=== PATIENT | male | born 1985 | race African-American/Black ===

== ENCOUNTER 2017-06-21 10:15 | Inpatient (IN) | payer OTHER ==
--- NOTE | 2017-06-21 10:48 | PDOC ---
History of Present Illness - General Chief Complaint: Weakness Stated Complaint: LETHARGIC - History of Present Illness Initial Comments: 32 year old male with history of MR and schizophrenia presenting with abdominal pain, nausea, vomiting, and general lethargy for the past week that has been worsening. Per the nursing staff, the patient has been more lethargic over the past few days and has been vomiting non bloody but occasionally bilious fluid. The staff says that he is less responsive than usual and has been complaining of stomach pain over the past few days. Denies fevers, chills, chest pain, cough, or urinary complaints. Of note, he has been generally severely declined over the past year and his dose of Depakote and seroquel has increased significantly with the latest change two weeks prior. 06/21/17 10:58 Past History - Past Medical History Allergies/Adverse Reactions: Allergies Allergy/AdvReac Type Severity Reaction Status Date / Time No Known Allergies Allergy Verified 06/21/17 10:28 Home Medications: Ambulatory Orders Acetaminophen [Tylenol] 650 mg PO QID 06/21/17 Aripiprazole [Abilify -] 5 mg PO DAILY 06/21/17 Cholecalciferol (Vitamin D3) [Vitamin D3 -] 1,000 unit PO DAILY 06/21/17 Divalproex [Depakote -] 1,500 mg PO BID 06/21/17 Guaifenesin/D-Methorphan Hb/PE [Tussi-Pres Liquid] 10 ml PO QID 06/21/17 Propranolol HCl 20 mg PO BID 06/21/17 Quetiapine Fumarate [Seroquel -] 300 mg PO HS 06/21/17 Psychiatric Problems: Yes (schizophrenia) Seizures: Yes Other medical history: mild MR - Suicide/Smoking/Psychosocial Hx Smoking History: Never smoked Review of Systems - Review of Systems Constitutional: Yes: Loss of Appetite. No: Chills, Fever HEENTM: No: Blurred Vision Respiratory: No: Cough, Shortness of Breath, Productive cough Cardiac (ROS): No: Chest Pain, Edema ABD/GI: Yes: Nausea. No: Constipated, Diarrhea : No: Burning, Dysuria Neurological: No: Headache *Physical Exam - Vital Signs Last Vital Signs Temp Pulse Resp BP Pulse Ox 97.7 F 115 H 18 133/101 96 06/21/17 10:28 06/21/17 10:28 06/21/17 10:28 06/21/17 10:28 06/21/17 10:28 - Physical Exam General Appearance: Yes: Nourished, Appropriately Dressed. No: Apparent Distress HEENT: positive: EOMI, SIERRA, Normal Voice. negative: Normal ENT Inspection ( Mucous membranes dry) Neck: positive: Trachea midline, Normal Thyroid, Supple. negative: Tender, Rigid Respiratory/Chest: positive: Lungs Clear, Normal Breath Sounds. negative: Chest Tender, Respiratory Distress Cardiovascular: positive: Regular Rhythm, S1, S2, Tachycardia. negative: Edema , Murmur Gastrointestinal/Abdominal: positive: Tender (LLQ, LUQ, and RUQ tendedrness to palpation with voluntary gauarding.), Flat, Soft, Decreased BS. negative: Normal Bowel Sounds Integumentary: positive: Normal Color, Dry, Warm Neurologic: positive: Alert, Normal Mood/Affect. negative: Fully Oriented (AOx2 ), Normal Response (Appears mentally delayed with delayed speech and slight discoordination of his limbs) ED Treatment Course - LABORATORY CBC & Chemistry Diagram: 06/21/17 11:06 06/21/17 13:18 Medical Decision Making - Medical Decision Making 32 year old male with nausea, vomiting, and lethargy for the past few days. Lipase [address] showing potential pancreatitis with mild to moderate fluid in the abdomen. Lactate elevated from 3.2 to 4.0 after 2L NS. WBC 22 and patient thrombocytopenic to 50s with an YAMILE. His abdominal exam was originally significant for LLQ, LUQ, and RLQ tenderness but some mold voluntary guarding. Repeat exam after lactate returned elevated was non tender but significant for more voluntary vs. involuntary guarding. Also of note, patient seems to have a history of overflow incontinence and patient hasn't urinated since getting 2L of NS. Patient admitted to ICU under Dr. Vieira with Annika consulted and Be also spoken to. 06/21/17 14:33 *DC/Admit/Observation/Transfer Diagnosis at time of Disposition: Acute pancreatitis, Acute renal failure, Thrombocytopenia, Leukocytosis - Discharge Dispostion Condition at time of disposition: Stable Admit: Yes
[2017-06-21] MEDS ORDERED: SODIUM CHLORIDE 0.9% 1000 ML INFUS.BAG IV ONE (10:58)
--- NOTE | 2017-06-21 11:10 | PDOC ---
Attending Attestation - Resident Resident Name: Fito Darling - ED Attending Attestation I have performed the following: I have examined & evaluated the patient, The case was reviewed & discussed with the resident, I agree w/resident's findings & plan, Exceptions are as noted - HPI HPI: 06/21/17 11:01 32 yo male PERLITA from residential facility because he has had nausea,vomiting and diarrhea recently. Also the aide mentioned that the pt has been gradually becoming less functional over the past few months. He used to be able to participate in work but his cognitive function has been declining. Dr Darling called the facility and spoke with staff .They mentioned that they have been increased his seroquel over the past few months and the most recent increase was 2 weeks - Physicial Exam PE: 06/21/17 11:10 Slender 32 yo male presents with c/o abdominal pain. He is tachycardic (pulse 107)upon arrival. pulse tv=683% on room air,normotensive HEENT -slightly protruding tongue,no drooling,easily conversing with staff /no rhinorhea/eyes stephan eomi neck no bruits,no jvd lungs cta b/l cvs tachycardia abd -distended ,lower abdominal tenderness to palpation,no epigastric discomfort ext moving all extremities neuro moving extremities,speaking - Medical Decision Making 06/21/17 11:24 differential includes UTI,appendicitis,colitis -the pt's slow cognitive decline this year may be due to early Alzheimer's, medication effects. plan UA,cbc,comp,ct scan,IVF pt reassessment 06/21/17 12:44 labs abnormal w renal failure 06/21/17 15:02 06/21/17 18:02 32-year-old with nausea, vomiting and diarrhea, was found to have pancreatitis on the CAT scan -Reviewing his labs, he has a leukocytosis of 22,000, renal failure with a creatinine of 2.2 and BUN of 49, lipase is 3350 -His LFTs are within normal limits -he was given IV fluids, but his lactate increased to 3.2 to 4.0 - discussed with Dr. Roblero, the surgeon who requested he be placed in the ICU -Dr. Hnug Winter sweat band separator, agreed to the ICU admission
[2017-06-21 11:33] LABS: MCH 29.8 pg (25.7-33.7); MCHC 32.6 g/dl (32.0-35.9); MEAN CELL VOLUME 91.3 fl (80-96); PLATELET COUNT 56 K/MM3 (134-434); RDW 17.6 % (11.9-15.9)
[2017-06-21 11:36] LABS: URINE APPEARANCE SLCLOUDY; URINE BILIRUBIN NEGATIVE (NEGATIVE); URINE BLOOD NEGATIVE (NEGATIVE); URINE COLOR AMBER; URINE GLUCOSE (UA) NEGATIVE (NEGATIVE); URINE KETONE TRACE (NEGATIVE); URINE LEUK ESTERASE NEGATIVE (NEGATIVE); URINE NITRITE NEGATIVE (NEGATIVE); URINE UROBILINOGEN NEGATIVE mg/dL (0.2-1.0)
[2017-06-21 11:42] LABS: URINE PROTEIN 1+ (NEGATIVE)
[2017-06-21 11:43] LABS: URINE HYALINE CAST 4 /lpf; URINE MUCUS RARE; URINE RBC 29 /hpf (0-3); URINE WBC 4 /hpf (3-5)
[2017-06-21 12:07] LABS: PLATELET ESTIMATE DECREASED (NORMAL); TOTAL CELLS COUNTED 100
[2017-06-21] MEDS ORDERED: SODIUM CHLORIDE 0.9% 500 ML INFUS.BAG IV ONE (12:53)
[2017-06-21] MEDS ORDERED: ONDANSETRON 4 MG/2 ML VIAL IVPUSH ONE (13:16)
[2017-06-21] MEDS ORDERED: ONDANSETRON 4 MG/2 ML VIAL ONE (13:25)
[2017-06-21 14:03] LABS: ALBUMIN 2.8 g/dl (3.4-5.0); ANION GAP 9 (8-16); BILIRUBIN,TOTAL 0.9 mg/dL (0.2-1.0); CALCIUM 8.4 mg/dL (8.5-10.1); CO2 29 mmol/L (21-32); CREATININE 2.2 mg/dL (0.7-1.3); GLUCOSE,RANDOM 75 mg/dL (74-106); SGOT/AST 37 U/L (15-37); SGPT/ALT 25 U/L (12-78); TOT PROT 6.6 g/dl (6.4-8.2)
[2017-06-21 14:04] LABS: ALK PHOS 24 U/L (45-117)
[2017-06-21] MEDS ORDERED: LEVOFLOXACIN 750 MG IVPB 150 ML IVPB ONE ×2 (17:18→17:33)
[2017-06-21] MEDS ORDERED: METRONIDAZOLE 500 MG PREMIXED 100 ML IVPB ONE ×2 (17:19→17:33)
[2017-06-21] MEDS ORDERED: SODIUM CHLORIDE 1,000 ML IV STA (17:20)
[2017-06-21] MEDS: DEXTROSE 5%-NORMAL SALINE 1,000 ML IV SCH (20:00)
--- NOTE | 2017-06-21 20:06 | CONSULT ---
Consult - text type - Consultation Consultation Note: PULM/CCM Pt seen and examined in the ICU CC; Abd pain, N/V Hx obtained from medical record and pt interview (slightly limited due to psych illness) HPI: Briefly Mr Bradshaw is a 32 year old male with history of MR and schizophrenia presented to ED from [facility] today with abdominal pain, nausea , vomiting, and general lethargy for the past week. Reported abd pain, NBNB emesis, and diarrhea over last week with associated lethargy and general malaise. Denies fevers, chills, chest pain, cough, or urinary complaints. His mental status has been in decline over last few years and clinical staff at home has been up titrating his seroquel and depakote. In ED pt was afebrile, normotensive, mildly tachycardic. He had some abd guarding and was noted to be distended. Labs were notable for wbc of 22k, 10% bandemia, ENRIQUE/Cr 49/2.2, lactate 3, and lipase of 3500, mild erythrocytosis and thrombocytopenia were noted. Glucose was normal, HCo3 wnl. LDH as not sent but Suleman low. Dry CTAP with trace pleural effusions, some free fluid in low abd and pelvis, enlargement of pancreas with some perpancreatic fluid (no abcess or pseudo cyst). Mr Bradshaw was given 3L of fluid without decrease in lacate (4). Put on LVQ and Metro for broad abd coverage. Primary MD consulted surgery/Dr Roblero. Admitted to ICU. On arrival in ICU pt was awake, pleasant, non-toxic, normotensive c/o mild abd pain. He relates relatively few bowel mvt and decreased UOP over last week. ABD was mildly tender, no rebound, no flank pain, no fluid wave. PMHX: schizophrenia MR PSH: non reported SOCI: lives in correction, no toxic habits Family HX: unk Home Medications Medication Instructions Recorded Acetaminophen [Tylenol] 650 mg PO QID 06/21/17 Aripiprazole [Abilify -] 5 mg PO DAILY 06/21/17 Cholecalciferol (Vitamin D3) 1,000 unit PO DAILY 06/21/17 [Vitamin D3 -] Divalproex [Depakote -] 1,500 mg PO BID 06/21/17 Guaifenesin/D-Methorphan Hb/PE 10 ml PO QID 10/01/17 [Tussi-Pres Liquid] Propranolol HCl 20 mg PO BID 06/21/17 Quetiapine Fumarate [Seroquel -] 300 mg PO HS 06/21/17 Vital Signs Temp 98.0 F 06/21/17 19:50 Pulse 105 H 06/21/17 19:50 Resp 17 06/21/17 19:50 BP 137/103 06/21/17 19:50 Pulse Ox 95 06/21/17 17:39 Intake & Output 06/20/17 06/21/17 06/21/17 23:59 11:59 23:59 Weight 72.575 kg 72 kg Other: Height 5 ft 10 in 5 ft 10 in Body Mass Index (BMI) 22.9 22.7 CBCD WBC 22.0 K/mm3 (4.0-10.0) H 06/21/17 11:06 RBC 6.15 M/mm3 (4.00-5.60) H 06/21/17 11:06 Hgb 18.3 GM/dL (11.7-16.9) H 06/21/17 11:06 Hct 56.2 % (35.4-49) H 06/21/17 11:06 MCV 91.3 fl (80-96) 06/21/17 11:06 MCHC 32.6 g/dl (32.0-35.9) 06/21/17 11:06 RDW 17.6 % (11.9-15.9) H 06/21/17 11:06 Plt Count 56 K/MM3 (134-434) L 06/21/17 11:06 MPV 11.0 fl (7.5-11.1) 06/21/17 11:06 CMP Sodium 138 mmol/L (136-145) 06/21/17 13:18 Potassium 5.4 mmol/L (3.5-5.1) H 06/21/17 13:18 Chloride 100 mmol/L (98-107) 06/21/17 13:18 Carbon Dioxide 29 mmol/L (21-32) 06/21/17 13:18 Anion Gap 9 (8-16) 06/21/17 13:18 BUN 49 mg/dL (7-18) H 06/21/17 13:18 Creatinine 2.2 mg/dL (0.7-1.3) H 06/21/17 13:18 Creat Clearance w eGFR 34.43 (>60) 06/21/17 13:18 Calcium 8.4 mg/dL (8.5-10.1) L 06/21/17 13:18 Total Bilirubin 0.9 mg/dL (0.2-1.0) 06/21/17 13:18 AST 37 U/L (15-37) 06/21/17 13:18 ALT 25 U/L (12-78) 06/21/17 13:18 Alkaline Phosphatase 24 U/L (45-117) L 06/21/17 13:18 Total Protein 6.6 g/dl (6.4-8.2) 06/21/17 13:18 Albumin 2.8 g/dl (3.4-5.0) L 06/21/17 13:18 ROS: 10 pt review unrevealing save as per HPI CTAP w/o PO or IV: report reviewed. free fluid in pelvis, pancreatic enlargement (pancreatitis vs mass). no gallstones, no hydronephrosis, no colitis PE: Gen: awake, conversant, non distress young man PULM: clear, no wheezes, no distress CV: RRR no m/r/g appreciated ABD: mildly distended, typanic, mildly tender x 4 quad possibly more pronounced subxyphoid and upper epigastric, hypoactive BS, no rebound EXT: w/w/p, no edema Neuro: non focal, mild congnitive delay c/w know MR A/ 32 y/o man with mild MR and schizophrenia p/w mild pancreatitis, YAMILE, leukocytosis and diffuse abd pain possibly due to drug effect (uptitrating seroquel) -NPO pending surgery/Roblero eval -agree with broad spectrum abx, but low threshold to d/c as may be simple pancreatitis -fluid resuscitation, trend lactate (more urgent surg eval if lactate cont to rise) -hold seroquel and depakote for now, can use IM haldol for acute issues -ABD US pending -check urine lytes, nephrology consult if Cr cont to rise after adequate volume resusitation - attempt to get record from PMD regarding baseline Cr, plt count, etc - Venodynes given thrombocytopenia, PPI -ICU monitoring overnight David Burden ACNP [id number]
[2017-06-21 20:08] VITALS: BMI 22.7
[2017-06-21] MEDS ORDERED: FAMOTIDINE 20 MG/50 ML IVPB 50 ML IVPB SCH (20:45)
[2017-06-22] MEDS ORDERED: ONDANSETRON 4 MG/2 ML VIAL IVPUSH ONE (01:15)
[2017-06-22 05:34] LABS: MCH 29.9 pg (25.7-33.7); MCHC 32.7 g/dl (32.0-35.9); MEAN CELL VOLUME 91.4 fl (80-96); MEAN PLT VOLUME 11.9 fl (7.5-11.1); PLATELET COUNT 55 K/MM3 (134-434); RDW 17.5 % (11.9-15.9); WHITE BLOOD COUNT 23.1 K/mm3 (4.0-10.0)
[2017-06-22 06:08] LABS: ALBUMIN 2.1 g/dl (3.4-5.0); ANION GAP 11 (8-16); BILIRUBIN,DIRECT 0.4 mg/dL (0.0-0.2); CALCIUM 7.7 mg/dL (8.5-10.1); CO2 26 mmol/L (21-32); CREATININE 1.7 mg/dL (0.7-1.3); GLUCOSE,RANDOM 133 mg/dL (74-106); LDH 299 U/L (87-241); PHOSPHOROUS 2.9 mg/dL (2.5-4.9); SGOT/AST 22 U/L (15-37); SGPT/ALT 19 U/L (12-78)
[2017-06-22 06:10] LABS: ALK PHOS 17 U/L (45-117); BILIRUBIN,TOTAL 1.1 mg/dL (0.2-1.0)
[2017-06-22 08:17] LABS: TOTAL CELLS COUNTED 100
[2017-06-22] MEDS: DEXTROSE 5%-NORMAL SALINE 1,000 ML IV SCH ×3 (08:21→18:24)
[2017-06-22] MEDS ORDERED: ONDANSETRON 4 MG/2 ML VIAL IVPB PRN (10:08)
[2017-06-22] MEDS ORDERED: DEXTROSE 5%-NORMAL SALINE 1,000 ML IV SCH (10:10)
--- NOTE | 2017-06-22 10:11 | HP ---
Admitting History and Physical - Primary Care Physician PCP: Naila Vieira - Admission Chief Complaint: not well. History of Present Illness: 32 year old male -- senior living resident--with history of MR and schizophrenia presenting with abdominal pain, nausea, vomiting, and general lethargy for the past week that has been worsening. Per the nursing staff, the patient has been more lethargic over the past few days and has been vomiting non bloody but occasionally bilious fluid. The staff says that he is less responsive than usual and has been complaining of stomach pain over the past few days. Denies fevers, chills, chest pain, cough, or urinary complaints. Of note, he has been generally severely declined over the past year and his dose of Depakote and seroquel has increased significantly with the latest change two weeks prior. pt found to have acute pancreatitis. admitted to icu as lactate increasing- given fluids/ abx surgical consult was requested by er physician. Case was discussed with er physician last night. pt seen/ examined today chart reviewed ct scan noted/ reviewed. Pt awake/ comfortable not in distress. poor historian. History Source: Medical Record Limitations to Obtaining History: Clinical Condition, Other (h/o MR.) - Smoking History Smoking history: Never smoked - Alcohol/Substance Use Hx Alcohol Use: No Home Medications - Allergies Allergies/Adverse Reactions: Allergies Allergy/AdvReac Type Severity Reaction Status Date / Time No Known Allergies Allergy Verified 06/21/17 10:28 - Home Medications Home Medications: Ambulatory Orders Acetaminophen [Tylenol] 650 mg PO QID 06/21/17 Aripiprazole [Abilify -] 5 mg PO DAILY 06/21/17 Cholecalciferol (Vitamin D3) [Vitamin D3 -] 1,000 unit PO DAILY 06/21/17 Divalproex [Depakote -] 1,500 mg PO BID 06/21/17 Guaifenesin/D-Methorphan Hb/PE [Tussi-Pres Liquid] 10 ml PO QID 06/21/17 Propranolol HCl 20 mg PO BID 06/21/17 Quetiapine Fumarate [Seroquel -] 300 mg PO HS 06/21/17 Review of Systems Unable to obtain ROS, reason: see stillaguamish-- Physical Examination Vital Signs: Vital Signs Temperature 98.7 F 06/22/17 10:00 Pulse Rate 99 H 06/22/17 10:00 Respiratory Rate 24 06/22/17 10:00 Blood Pressure 152/89 06/22/17 10:00 O2 Sat by Pulse Oximetry (%) 99 06/22/17 08:00 Constitutional: Yes: No Distress, Calm Eyes: Yes: Conjunctiva Clear Neck: Yes: Supple Cardiovascular: Yes: Regular Rate and Rhythm Respiratory: Yes: CTA Bilaterally Gastrointestinal: Yes: Soft, Other (mildly diffuse tenderness + no r/r quiet) Edema: No Neurological: Yes: Alert Labs: CBC, BMP 06/22/17 05:00 06/22/17 05:00 Imaging - Results Chest X-ray: Report Reviewed Cat Scan: Report Reviewed Ultrasound: Report Reviewed Problem List - Problems (1) ARF (acute renal failure) Code(s): N17.9 - ACUTE KIDNEY FAILURE, UNSPECIFIED (2) Leukocytosis Code(s): D72.829 - ELEVATED WHITE BLOOD CELL COUNT, UNSPECIFIED (3) Pancreatitis, acute Code(s): K85.90 - ACUTE PANCREATITIS WITHOUT NECROSIS OR INFECTION, UNSP (4) Thrombocytopenia Code(s): D69.6 - THROMBOCYTOPENIA, UNSPECIFIED (5) Mental retardation Code(s): F79 - UNSPECIFIED INTELLECTUAL DISABILITIES Assessment/Plan Iv fluids Abx for now monitor labs hold psych meds for now-- likely caused pancreatits monitor platlets avoid heparin/ lovenox f/u labs GI/ Surgery consults . condition gaurded. will follow.. Discussed with nursing staff also.
--- NOTE | 2017-06-22 10:54 | CONSULT ---
- Consultation REQUESTING PROVIDER: Sigrid Vieira MD CONSULT REQUEST: We have been asked to surgically evaluate this patient for pancreatitis PCP:Naila Vieira HISTORY OF PRESENT ILLNESS: CTSP who is a 32 y/o male who presented to the hospital from a facility where he resodes w/ progressive nausea; vomiting and abdominal pain over 1 week; no previous h/o abdominal surgeru; rest of hx. as noted in the chart; of note is his apparent increase in his Seroquel dosage; he is a poor historian PMHx: MR; schizophrenia PSHx: none Home Medications Medication Instructions Recorded Acetaminophen [Tylenol] 650 mg PO QID 06/21/17 Aripiprazole [Abilify -] 5 mg PO DAILY 06/21/17 Cholecalciferol (Vitamin D3) 1,000 unit PO DAILY 06/21/17 [Vitamin D3 -] Divalproex [Depakote -] 1,500 mg PO BID 06/21/17 Guaifenesin/D-Methorphan Hb/PE 10 ml PO QID 06/21/17 [Tussi-Pres Liquid] Propranolol HCl 20 mg PO BID 06/21/17 Quetiapine Fumarate [Seroquel -] 300 mg PO HS 06/21/17 Allergies Allergy/AdvReac Type Severity Reaction Status Date / Time No Known Allergies Allergy Verified 06/21/17 10:28 PHYSICAL EXAM: GENERAL: Awake, alert, in no acute distress. HEAD: Normal with no signs of trauma. EYES: sclera anicteric, conjunctiva clear. NECK: Normal ROM, supple without lymphadenopathy, JVD, or masses. ABDOMEN: Soft, nontender, slightly distended and tympanitic, sluggish bowel sounds, no guarding, no rebound, no masses. No organomegaly. No hernias MUSCULOSKELETAL: Normal ROM at all joints. No bony deformities or tenderness. No CVA tenderness. UPPER EXTREMITIES: 2+ pulses, warm, well-perfused. No cyanosis. Cap refill <2 seconds. No peripheral edema. LOWER EXTREMITIES: 2+ pulses, warm, well-perfused. No calf tenderness. No peripheral edema. NEUROLOGICAL: Normal speech, gait not observed. PSYCH: Cooperative. Good eye contact. Appropriate mood and affect. SKIN: Warm, dry, normal turgor, no rashes or lesions noted. Vital Signs Temperature 98.7 F 06/22/17 10:00 Pulse Rate 99 H 06/22/17 10:00 Respiratory Rate 24 06/22/17 10:00 Blood Pressure 152/89 06/22/17 10:00 O2 Sat by Pulse Oximetry (%) 99 06/22/17 08:00 Lab Results WBC 23.1 K/mm3 (4.0-10.0) H 06/22/17 05:00 RBC 5.22 M/mm3 (4.00-5.60) 06/22/17 05:00 Hgb 15.6 GM/dL (11.7-16.9) D 06/22/17 05:00 Hct 47.7 % (35.4-49) D 06/22/17 05:00 MCV 91.4 fl (80-96) 06/22/17 05:00 MCHC 32.7 g/dl (32.0-35.9) 06/22/17 05:00 RDW 17.5 % (11.9-15.9) H 06/22/17 05:00 Plt Count 55 K/MM3 (134-434) L 06/22/17 05:00 Sodium 139 mmol/L (136-145) 06/22/17 05:00 Potassium 4.5 mmol/L (3.5-5.1) 06/22/17 05:00 Chloride 102 mmol/L (98-107) 06/22/17 05:00 Carbon Dioxide 26 mmol/L (21-32) 06/22/17 05:00 Anion Gap 11 (8-16) 06/22/17 05:00 BUN 49 mg/dL (7-18) H 06/22/17 05:00 Creatinine 1.7 mg/dL (0.7-1.3) H D 06/22/17 05:00 Random Glucose 133 mg/dL (74-106) H D 06/22/17 05:00 Calcium 7.7 mg/dL (8.5-10.1) L 06/22/17 05:00 Ct/US w/u to date reviewed IMP: pancreatitis not of biliary tract origin or ETOH; ? medication induced ? PLAN: IVF/fluid resucitation; NPO; strict I/O; f/u labs and repeat imaging as needed; will f/u. Javed Roblero MD FACS Visit type - Case Type Case Type: ED Admission - Emergency Emergency Visit: Yes ED Registration Date: 06/21/17 Care time: The patient presented to the Emergency Department on the above date and was hospitalized for further evaluation of their emergent condition. - New patient This patient is new to me today: Yes Date on this admission: 06/22/17 - Critical Care Critical Care patient: Yes Total Critical Care Time: 25
--- NOTE | 2017-06-22 12:54 | PN ---
Teaching Attending Note Name of Resident: Dylan Sauceda ATTENDING PHYSICIAN STATEMENT I saw and evaluated the patient. I reviewed the resident's note and discussed the case with the resident. I agree with the resident's findings and plan as documented. SUBJECTIVE: Patient seen and examined in the ICU. Awake and alert. Poor historian but reports the pain is somewhat better today. Denies CP or SOB. Intake & Output 06/19/17 06/20/17 06/21/17 06/22/17 23:59 23:59 23:59 23:59 Intake Total 237.5 600 Output Total 400 650 Balance -162.5 -50 Weight 160 lb 157 lb 3.033 oz Last Vital Signs Temp Pulse Resp BP Pulse Ox 98.8 F 98 H 21 141/92 99 06/22/17 12:00 06/22/17 12:08 06/22/17 12:08 06/22/17 12:08 06/22/17 08:00 Active Medications Chlorhexidine Gluconate (Hibiclens For Decolonization -) 1 applic TP HS STEPHON Famotidine/Sodium Chloride (Pepcid 20 Mg Premixed Ivpb -) 50 mls @ 100 mls/hr IVPB Q24H STEPHON Last Admin: 06/21/17 21:22 Dose: 100 mls/hr Dextrose/Sodium Chloride (D5-Ns -) 1,000 mls @ 120 mls/hr IV ASDIR STEPHON Last Admin: 06/22/17 10:10 Dose: 120 mls/hr Mupirocin (Bactroban Ointment (For Decolonization) -) 1 applic NS BID [facility] Stop: 06/27/17 21:59 Ondansetron HCl (Zofran Injection) 4 mg IVPB Q8H PRN PRN Reason: NAUSEA Gen: awake, conversant, NAD PULM: clear, no wheezes CV: RRR, (-) ESM ABD: mildly distended, soft, NT, no rebound, (+) BS EXT: w/w/p, no edema Neuro: non focal, mild congnitive delay c/w know MR IMP: Acute pancreatitis YAMILE Mild MR Schizophrenia Leukocytosis NPO Surgical evaluation noted IVF Monitor off ABX VTE prophylaxis GI evaluation Floor Dr Vazquez Critical care time spent in reviewing chart, evaluating patient and formulating plan - 35 minutes.
--- NOTE | 2017-06-22 13:57 | PN ---
Physical Exam: SUBJECTIVE: 32 year old male with h/o schizophrenia on Seroquel and Depakote. and mental disability who presented to ED from [facility] (06/21) with 1 week of worsening abdominal pain, N/V, and lethargy. In ED pt was hemodynamically stable and afebrile, with evidence of abdominal guarding and distension. He had elevated WBC of 22,000 with 10% bandemia, lactate 3, lipase of 3500, BUN/Cr 49/2.2, and thrombocytopenia. CT abdomen and Pelvis depicted trace BL pleural effusions, scant free fluid in lower abdomen/pelvis, enlarged pancreas with peripancreatic fluid.There is suspicion for acute neoplastic infiltration vs. acute pancreatitis. He was given 3L NS with no change lactate and placed on Levaquin/Metronidazole coverage. Patient currently with no complaints or concerns. He had one episode of emesis overnight with complete resolution of nausea/vomitting. He is resting comfortably in bed and denies abdominal pain, diarrhea, constipation. denies chest pain. SOB, flank pain, dysuria. He is requesting food and water, but counseled on his condition and advised to remain NPO status. OBJECTIVE: Vital Signs Period Temp Pulse Resp BP Sys/Boone Pulse Ox Last 24 Hr 98.0 F-99.2 F 97-115 17-103 119-153/87-105 95-99 GENERAL: The patient is awake, alert, and fully oriented, in no acute distress. HEAD: Normal with no signs of trauma. LUNGS: Breath sounds equal, clear to auscultation bilaterally, no wheezes, no crackles, no accessory muscle use. HEART: Regular rate and rhythm, S1, S2 without murmur, rub or gallop. ABDOMEN: Soft, nontender, nondistended, normoactive bowel sounds, no guarding, no rebound, no hepatosplenomegaly, no masses. EXTREMITIES: 2+ pulses, warm, well-perfused, no edema. PSYCH: Normal mood, normal affect. SKIN: Warm, dry, normal turgor, no rashes or lesions noted Laboratory Results - last 24 hr 06/21/17 06/22/17 06/22/17 22:30 05:00 05:00 WBC 23.1 H RBC 5.22 Hgb 15.6 D Hct 47.7 D MCV 91.4 MCH 29.9 MCHC 32.7 RDW 17.5 H Plt Count 55 L MPV 11.9 H Total Counted 100 Neutrophils % (Manual) 81 D Band Neuts % (Manual) 2 D Lymphocytes % (Manual) 1 L D Monocytes % (Manual) 16 H* Sodium 139 Potassium 4.5 Chloride 102 Carbon Dioxide 26 Anion Gap 11 BUN 49 H Creatinine 1.7 H D Creat Clearance w eGFR 46.37 Random Glucose 133 H D Hemoglobin A1c % Lactic Acid 3.3 H* Calcium 7.7 L Phosphorus 2.9 Magnesium 2.0 Total Bilirubin 1.1 H D Direct Bilirubin 0.4 H AST 22 D ALT 19 D Alkaline Phosphatase 17 L D LD Total 299 H Total Protein 5.0 L D Albumin 2.1 L D Lipase Ur Random Sodium Ur Random Potassium Ur Random Chloride Urine Creatinine 06/22/17 06/22/17 06/22/17 05:00 10:25 10:25 WBC RBC Hgb Hct MCV MCH MCHC RDW Plt Count MPV Total Counted Neutrophils % (Manual) Band Neuts % (Manual) Lymphocytes % (Manual) Monocytes % (Manual) Sodium Potassium Chloride Carbon Dioxide Anion Gap BUN Creatinine Creat Clearance w eGFR Random Glucose Hemoglobin A1c % 5.6 Lactic Acid 2.0 Calcium Phosphorus Magnesium Total Bilirubin Direct Bilirubin AST ALT Alkaline Phosphatase LD Total Total Protein Albumin Lipase 1376 H Ur Random Sodium Ur Random Potassium Ur Random Chloride Urine Creatinine 06/22/17 20:20 WBC RBC Hgb Hct MCV MCH MCHC RDW Plt Count MPV Total Counted Neutrophils % (Manual) Band Neuts % (Manual) Lymphocytes % (Manual) Monocytes % (Manual) Sodium Potassium Chloride Carbon Dioxide Anion Gap BUN Creatinine Creat Clearance w eGFR Random Glucose Hemoglobin A1c % Lactic Acid Calcium Phosphorus Magnesium Total Bilirubin Direct Bilirubin AST ALT Alkaline Phosphatase LD Total Total Protein Albumin Lipase Ur Random Sodium 30 Ur Random Potassium 56.2 Ur Random Chloride 21 Urine Creatinine 199.0 Active Medications Generic Name Dose Route Start Last Admin Trade Name Freq PRN Reason Stop Dose Admin Chlorhexidine Gluconate 1 applic 06/22/17 22:00 Hibiclens For Decolonization - TP HS [facility] Famotidine/Sodium Chloride 50 mls @ 100 mls/hr 06/21/17 20:45 06/21/17 21:22 Pepcid 20 Mg Premixed Ivpb - IVPB 100 mls/hr Q24H [facility] Administration Dextrose/Sodium Chloride 1,000 mls @ 120 mls/hr 06/22/17 10:10 06/22/17 10:10 D5-Ns - IV 120 mls/hr ASDIR [facility] Administration Mupirocin 1 applic 06/22/17 22:00 Bactroban Ointment (For Decolonization) - NS 06/27/17 21:59 BID [facility] Ondansetron HCl 4 mg 06/22/17 10:08 Zofran Injection IVPB Q8H PRN NAUSEA ASSESSMENT/PLAN: 32 year old male with h/o schizophrenia on Seroquel and Depakote and mental disability who presents to ICU followiing ED amdisiion for 1 week of worsening abdominal pain, N/V, and lethargy, elevated WBC of 22,000, lactate 3, lipase of 3500, BUN/Cr 49/2.2, and CT abdomen and Pelvis with evidence of acute pancreatitis vs neoplastic infiltration given 3L NS and placed on Levaquin/ Metronidazole coverage. Acute Pancreatitis: Drug induced vs. gallstone pancreatitis. vs paraneoplastic process. Lipase 3350--> 1376 ( 06/22) WBC 22,000 ( 06/22) Lactate 4.0--> 3.3 ( 06/22) CT Ab/Pelvis ( 06/21): enlarged pancreas with peripancreatic fluid with trace pleural effusions RUQ U/S: Small gallbladder wall sludge with thickening of wall. Trace upper and lower abdominal ascites. Patient given 3 L NS in ED Patient given IV Metronidazole, Levaquin Denies alcohol use. Reports recent increase in Seraquel. Plan: - NPO - Strict Is/Os - Switch IV D5NS to LR - Trend Lactate - Cont pain control Thrombocytopenia: Chronic vs. Acute PLT 56 on admission--> 55 ( 06/22) Patient on antipsychotics therapy for Schizophrenia. Home Quietapine and Aripiprazole. Plan: - Daily CBC - PLT transfusions if below 20 or 50 and symptomatic. - Cont to hold Depakote and Seraquel, with IM haldol for acute issues. PPx: Famotidine FEN: D5NS, Lytes PRN, NPO Dispo: Med/Surg Visit type - Emergency Visit Emergency Visit: Yes ED Registration Date: 06/21/17 Care time: The patient presented to the Emergency Department on the above date and was hospitalized for further evaluation of their emergent condition. - New Patient This patient is new to me today: Yes Date on this admission: 06/22/17 - Critical Care Critical Care patient: Yes Total Critical Care Time (in minutes): 30 Critical Care Statement: The care of this patient involved high complexity decision making to prevent further life threatening deterioration of the patient 's condition and/or to evaluate & treat vital organ system(s) failure or risk of failure.
[2017-06-22] MEDS: ONDANSETRON 4 MG/2 ML VIAL IVPB PRN ×2 (15:13→22:56)
--- NOTE | 2017-06-22 18:46 | CON.GI ---
Consult - History of Present Illness History of Present Illness: 32 M with h/o schizophrenia on Seroquel and Depakote. [facility] with abdominal pain x 1 week, N/V and fatigue. - Alcohol/Substance Use Hx Alcohol Use: No - Smoking History Smoking history: Never smoked Home Medications - Allergies Allergies/Adverse Reactions: Allergies Allergy/AdvReac Type Severity Reaction Status Date / Time No Known Allergies Allergy Verified 06/21/17 10:28 - Home Medications Home Medications: Ambulatory Orders Acetaminophen [Tylenol] 650 mg PO QID 06/21/17 Aripiprazole [Abilify -] 5 mg PO DAILY 06/21/17 Cholecalciferol (Vitamin D3) [Vitamin D3 -] 1,000 unit PO DAILY 06/21/17 Divalproex [Depakote -] 1,500 mg PO BID 06/21/17 Guaifenesin/D-Methorphan Hb/PE [Tussi-Pres Liquid] 10 ml PO QID 06/21/17 Propranolol HCl 20 mg PO BID 06/21/17 Quetiapine Fumarate [Seroquel -] 300 mg PO HS 06/21/17 Physical Exam-GI Vital Signs: Vital Signs Temperature 97.5 F L 06/22/17 18:00 Pulse Rate 93 H 06/22/17 18:00 Respiratory Rate 18 06/22/17 18:00 Blood Pressure 156/96 06/22/17 18:00 O2 Sat by Pulse Oximetry (%) 98 06/22/17 14:57 Labs: CBC, BMP 06/22/17 05:00 06/22/17 05:00 Assessment/Plan Patient with pancreatitis admitted with pancreatitis and renal failure suggesting significant third spacing. Rec change IVF to LR at 200 ab rx clear liquid
[2017-06-22] MEDS ORDERED: LEVOFLOXACIN 500 MG IVPB 100 ML IVPB SCH (19:03)
[2017-06-22] MEDS: LACTATED RINGERS SOLUTION 1,000 ML IV SCH (19:38)
[2017-06-22] MEDS: LEVOFLOXACIN 500 MG IVPB 100 ML IVPB SCH (19:38)
[2017-06-22] MEDS: FAMOTIDINE 20 MG/50 ML IVPB 50 ML IVPB SCH (20:54)
[2017-06-22] MEDS ORDERED: MUPIROCIN 2% TOPICAL OINTMENT FOR DECOLONIZATION NS SCH ×2 (22:00)
[2017-06-22] MEDS ORDERED: CHLORHEXIDINE GLUCONATE 4% CLEANSER FOR DECOLONIZATION TP SCH ×2 (22:00)
[2017-06-23] MEDS: METRONIDAZOLE 500 MG PREMIXED 100 ML IVPB SCH ×3 (02:25→17:20)
[2017-06-23] MEDS: LACTATED RINGERS SOLUTION 1,000 ML IV SCH ×4 (03:15→17:20)
[2017-06-23 07:32] LABS: MCHC 32.2 g/dl (32.0-35.9); MEAN CELL VOLUME 93.1 fl (80-96); MEAN PLT VOLUME 10.2 fl (7.5-11.1); PLATELET COUNT 45 K/MM3 (134-434); RDW 17.7 % (11.9-15.9); WHITE BLOOD COUNT 16.8 K/mm3 (4.0-10.0)
[2017-06-23 08:22] LABS: MAGNESIUM 2.5 mg/dL (1.8-2.4)
[2017-06-23] MEDS ORDERED: PT OWN MED DRAWER 7, Y5N ONE ×3 (09:19→11:31)
[2017-06-23] MEDS ORDERED: ACETAMINOPHEN 325 MG TABLET (FP) PO PRN (09:30)
--- NOTE | 2017-06-23 09:33 | PN ---
Progress Note, Physician Chief Complaint: Events noted was nauseous this AM not vomiting No c/o pain in abdomen - Current Medication List Current Medications: Active Medications Acetaminophen (Tylenol -) 650 mg PO QID PRN PRN Reason: PAIN Aripiprazole (Abilify) 10 mg PO HS [facility] Aripiprazole (Abilify) 5 mg PO DAILY [facility] Divalproex Sodium (Depakote -) 1,500 mg PO BID [facility] Famotidine/Sodium Chloride (Pepcid 20 Mg Premixed Ivpb -) 50 mls @ 100 mls/hr IVPB DAILY@2100 [facility] Last Admin: 06/22/17 20:54 Dose: 100 mls/hr Lactated Ringer's (Lactated Ringers Solution) 1,000 mls @ 200 mls/hr IV ASDIR [facility] Last Admin: 06/23/17 09:03 Dose: 200 mls/hr Metronidazole (Flagyl 500mg Premixed Ivpb -) 100 mls @ 100 mls/hr IVPB Q8H-IV [facility] [place] Last Admin: 06/23/17 09:22 Dose: 100 mls/hr Levofloxacin (Levaquin 500 Mg Premixed Ivpb -) 100 mls @ 100 mls/hr IVPB DAILY [facility] Last Admin: 06/22/17 19:38 Dose: 100 mls/hr Ondansetron HCl (Zofran Injection) 4 mg IVPB Q8H PRN PRN Reason: NAUSEA Last Admin: 06/22/17 22:56 Dose: 4 mg Propranolol HCl (Inderal -) 20 mg PO BID [facility] Quetiapine Fumarate (Seroquel -) 700 mg PO [facility] - Objective Vital Signs: Vital Signs Temperature 98.2 F 06/23/17 06:00 Pulse Rate 98 H 06/23/17 06:00 Respiratory Rate 18 06/23/17 06:00 Blood Pressure 133/78 06/23/17 06:00 O2 Sat by Pulse Oximetry (%) 96 06/22/17 21:00 Constitutional: Yes: No Distress, Calm Cardiovascular: Yes: Regular Rate and Rhythm Respiratory: Yes: CTA Bilaterally Gastrointestinal: Yes: Normal Bowel Sounds, Soft, Distention (mild distension). No: Tenderness Edema: No Labs: CBC, BMP 06/23/17 06:30 Problem List - Problems (1) ARF (acute renal failure) Code(s): N17.9 - ACUTE KIDNEY FAILURE, UNSPECIFIED (2) Leukocytosis Code(s): D72.829 - ELEVATED WHITE BLOOD CELL COUNT, UNSPECIFIED (3) Mental retardation Code(s): F79 - UNSPECIFIED INTELLECTUAL DISABILITIES (4) Pancreatitis, acute Code(s): K85.90 - ACUTE PANCREATITIS WITHOUT NECROSIS OR INFECTION, UNSP Assessment/Plan PLAN renal function improving on iv fluids encourage Oral fluids as well on antibiotics Psych eval with regards to pt's meds will restart Abichristopherfy-- unsure about Depakote or Seroquel at this time Spoke with aunt who is concerned about the need for high dose psych meds
[2017-06-23] MEDS ORDERED: LEVOFLOXACIN 500 MG IVPB 100 ML IVPB SCH (10:00)
[2017-06-23] MEDS ORDERED: DIVALPROEX SODIUM 500 MG TABLET E.C. PO SCH (10:00)
[2017-06-23 10:21] LABS: ALBUMIN 2.1 g/dl (3.4-5.0); ALK PHOS 22 U/L (45-117); ANION GAP 5 (8-16); BILIRUBIN,TOTAL 1.4 mg/dL (0.2-1.0); CALCIUM 8.4 mg/dL (8.5-10.1); CO2 31 mmol/L (21-32); CREATININE 1.4 mg/dL (0.7-1.3); GLUCOSE,RANDOM 138 mg/dL (74-106); SGOT/AST 26 U/L (15-37); SGPT/ALT 20 U/L (12-78); TOT PROT 5.2 g/dl (6.4-8.2)
[2017-06-23] MEDS: ARIPiprazole 5 MG TABLET (FP) PO SCH (11:19)
[2017-06-23] MEDS: LEVOFLOXACIN 500 MG IVPB 100 ML IVPB SCH (11:19)
[2017-06-23] MEDS: PROPRANOLOL HCL 20 MG TABLET PO SCH ×2 (11:21→21:46)
--- NOTE | 2017-06-23 12:55 | CON.PSY ---
Psychiatry Consult Chief Complaint: Case discussed with HIS pSYCHIATRIST. pATIENT HAS A SEVERE pERSISTANT mENTAL iLLNESS. bI pOLAR dISORDER AND nEEDS ALL HIS pSYCHN MEDS. Symptoms: reports: Excessive Energy, Racing Thoughts, Impulsivity, Disorganized/ Disruptive Thoughts - Previous Psychiatric Treatment Outpatient: Less than 6 mos ago Inpatient: 2 or more prior admissions - Previous Substance Abuse Treatment Outpatient: None Inpatient: None - Reason for Previous Treatment Reason for Previous Treatment: Biploar Illness, Mental Retardation - Current Medications Current Medications: Active Medications Acetaminophen (Tylenol -) 650 mg PO QID PRN PRN Reason: PAIN Aripiprazole (Abilify) 10 mg PO HS [facility] Aripiprazole (Abilify) 5 mg PO DAILY [facility] Last Admin: 06/23/17 11:19 Dose: 5 mg Famotidine/Sodium Chloride (Pepcid 20 Mg Premixed Ivpb -) 50 mls @ 100 mls/hr IVPB DAILY@2100 [facility] Last Admin: 06/22/17 20:54 Dose: 100 mls/hr Metronidazole (Flagyl 500mg Premixed Ivpb -) 100 mls @ 100 mls/hr IVPB Q8H-IV [facility] Last Admin: 06/23/17 09:22 Dose: 100 mls/hr Levofloxacin (Levaquin 500 Mg Premixed Ivpb -) 100 mls @ 100 mls/hr IVPB DAILY [facility] Last Admin: 06/23/17 11:19 Dose: 100 mls/hr Lactated Ringer's (Lactated Ringers Solution) 1,000 mls @ 150 mls/hr IV ASDIR [facility] Last Admin: 06/23/17 11:19 Dose: 150 mls/hr Ondansetron HCl (Zofran Injection) 4 mg IVPB Q8H PRN PRN Reason: NAUSEA Last Admin: 06/22/17 22:56 Dose: 4 mg Propranolol HCl (Inderal -) 20 mg PO BID [facility] Last Admin: 06/23/17 11:21 Dose: 20 mg - Allergies Allergies: Allergies Allergy/AdvReac Type Severity Reaction Status Date / Time No Known Allergies Allergy Verified 06/21/17 10:28 - Current Living Status Usual Living Arrangement: With Parent - Current Mental Status Evaluation Appearance: Well Groomed Attitude: Guarded - Affect Affect: Constrictive Appropriateness: Not Appropriate - Mood Mood: Irritable - Speech/Language Expressive: Delayed - Psychomotor Activity Psychomotor Activity: Hyperactive - Thought Process Thought Process: Circumstantial - Thought Content Hallucinations: Absent Delusions: Absent - Self Perception Self Perception: No Impairment - Cognition Attention: Alert Orientation: Time Memory, Immediate Recall: Impaired Memory, Short Term: 1/3 Memory, Remote with Promptin/3 - Concentration Serial Sevens Intact: No Simple Calculations Intact: No - Abstraction Proverb Interpretation: Impaired Judgement: Minimally Impaired - Insight Insight: Impaired - Impulse Control Impulse Control: Minimally Impaired - Suicidal Ideation Suicidal Ideation: No - Homicidal Ideation Homicidal Ideation: No Assessment/Plan 1) Continue with [facility]rant Abilify dose. @) Re Start Seroquel 700mg po hs as soon as his Medical conditio improves. 3) Follow up with Dr Allison.
[2017-06-23] MEDS ORDERED: LORazepam 2 MG/ML SDV VIAL IM PRN (14:50)
[2017-06-23] MEDS: ONDANSETRON 4 MG/2 ML VIAL IVPB PRN (15:31)
--- NOTE | 2017-06-23 19:17 | PN ---
GI Progress Note Subjective: Patient in bed, comfortable. Family (mom and sister) present. - Objective Vital Signs: Vital Signs Temperature 98.2 F 06/23/17 10:00 Pulse Rate 100 H 06/23/17 10:00 Respiratory Rate 20 06/23/17 10:00 Blood Pressure 139/85 06/23/17 10:00 O2 Sat by Pulse Oximetry (%) 96 06/22/17 21:00 Constitutional: Well Nourished, Calm HENT: Yes: Normocephalic Cardiovascular: Yes: Regular Rate and Rhythm Respiratory: Yes: CTA Bilaterally Gastrointestinal Inspection: Yes: WNL (less distended) ...Auscultate: Yes: Hypoactive Bowel Sounds ...Palpate: Yes: Soft. No: Tenderness (unreliable exam due to psych issues) Psychiatric: Yes: Alert Labs: CBC, BMP 06/23/17 06:30 06/23/17 09:00 - ....Imaging Cat Scan: Report Reviewed (diffusely enlarged pancreas) Assessment/Plan Patient admitted with pancreatitis and renal failure suggesting significant third spacing. Good response to IVF with decreased Cr and BUN and lipase down to 762 as well Rec continue IVF LR at 150 and ab rx. clear liquid for now Spoke at length with one of his psychiatrists, Dr Roach, and we mutually agreed to hold depakote until further notice as there is a well-described correlation with pancreatitis. Abilify restarted and will likely need seroquel restarted soon based on behavior. Family agrees with plan
[2017-06-23] MEDS: FAMOTIDINE 20 MG/50 ML IVPB 50 ML IVPB SCH (21:37)
[2017-06-23] MEDS: ARIPiprazole 10 MG TABLET PO SCH (21:38)
[2017-06-23] MEDS ORDERED: QUEtiapine FUMARATE 300 MG TABLET PO SCH (22:00)
[2017-06-24] MEDS: ONDANSETRON 4 MG/2 ML VIAL IVPB PRN ×2 (00:40→11:01)
[2017-06-24] MEDS: METRONIDAZOLE 500 MG PREMIXED 100 ML IVPB SCH ×3 (01:20→18:07)
[2017-06-24 07:35] LABS: MCH 30.1 pg (25.7-33.7); MCHC 32.1 g/dl (32.0-35.9); MEAN CELL VOLUME 93.7 fl (80-96); MEAN PLT VOLUME 10.8 fl (7.5-11.1); PLATELET COUNT 78 K/MM3 (134-434); RDW 17.6 % (11.9-15.9); WHITE BLOOD COUNT 10.4 K/mm3 (4.0-10.0)
[2017-06-24 08:02] LABS: ALBUMIN 2.3 g/dl (3.4-5.0); ANION GAP 4 (8-16); CALCIUM 8.2 mg/dL (8.5-10.1); CO2 31 mmol/L (21-32); GLUCOSE,RANDOM 105 mg/dL (74-106)
[2017-06-24 08:07] LABS: ALK PHOS 23 U/L (45-117); BILIRUBIN,TOTAL 1.3 mg/dL (0.2-1.0); CREATININE 1.2 mg/dL (0.7-1.3); SGOT/AST 27 U/L (15-37); SGPT/ALT 21 U/L (12-78); TOT PROT 5.7 g/dl (6.4-8.2)
[2017-06-24 09:34] LABS: PLATELET ESTIMATE DECREASED (NORMAL); TOTAL CELLS COUNTED 100
--- NOTE | 2017-06-24 09:41 | PN ---
Progress Note, Physician Chief Complaint: was nauseous this AM not vomiting No c/o pain in abdomen - Current Medication List Current Medications: Active Medications Acetaminophen (Tylenol -) 650 mg PO QID PRN PRN Reason: PAIN Aripiprazole (Abilify) 10 mg PO HS [facility] Last Admin: 06/23/17 21:38 Dose: 10 mg Aripiprazole (Abilify) 5 mg PO DAILY [facility] Last Admin: 06/23/17 11:19 Dose: 5 mg Famotidine/Sodium Chloride (Pepcid 20 Mg Premixed Ivpb -) 50 mls @ 100 mls/hr IVPB DAILY@2100 [facility] Last Admin: 06/23/17 21:37 Dose: 100 mls/hr Metronidazole (Flagyl 500mg Premixed Ivpb -) 100 mls @ 100 mls/hr IVPB Q8H-IV [facility] Last Admin: 06/24/17 01:20 Dose: 100 mls/hr Levofloxacin (Levaquin 500 Mg Premixed Ivpb -) 100 mls @ 100 mls/hr IVPB DAILY [facility] Last Admin: 06/23/17 11:19 Dose: 100 mls/hr Lactated Ringer's (Lactated Ringers Solution) 1,000 mls @ 150 mls/hr IV ASDIR [facility] Last Admin: 06/23/17 17:20 Dose: 150 mls/hr Lorazepam (Ativan Injection -) 2 mg IM Q12H PRN PRN Reason: AGITATION Ondansetron HCl (Zofran Injection) 4 mg IVPB Q8H PRN PRN Reason: NAUSEA Last Admin: 06/24/17 00:40 Dose: 4 mg Propranolol HCl (Inderal -) 20 mg PO BID [facility] Last Admin: 06/23/17 21:46 Dose: 20 mg - Objective Vital Signs: Vital Signs Temperature 97.7 F 06/24/17 06:00 Pulse Rate 78 06/24/17 06:00 Respiratory Rate 18 06/24/17 06:00 Blood Pressure 147/84 06/24/17 06:00 O2 Sat by Pulse Oximetry (%) 96 06/22/17 21:00 Constitutional: Yes: No Distress, Calm Cardiovascular: Yes: Regular Rate and Rhythm Respiratory: Yes: CTA Bilaterally Gastrointestinal: Yes: Normal Bowel Sounds, Soft. No: Distention, Tenderness Edema: No Labs: CBC, BMP 06/24/17 07:20 06/24/17 07:20 Problem List - Problems (1) ARF (acute renal failure) Code(s): N17.9 - ACUTE KIDNEY FAILURE, UNSPECIFIED (2) Leukocytosis Code(s): D72.829 - ELEVATED WHITE BLOOD CELL COUNT, UNSPECIFIED (3) Mental retardation Code(s): F79 - UNSPECIFIED INTELLECTUAL DISABILITIES (4) Pancreatitis, acute Code(s): K85.90 - ACUTE PANCREATITIS WITHOUT NECROSIS OR INFECTION, UNSP Assessment/Plan PLAN renal function improving on iv fluids encourage Oral fluids as well on antibiotics Psych eval with regards to pt's meds noted seroquel to be restarted -- will start when nausea becomes better depakote on hold
[2017-06-24] MEDS ORDERED: PT OWN MED DRAWER 7, Y5N ONE ×3 (10:17→20:24)
[2017-06-24] MEDS: PROPRANOLOL HCL 20 MG TABLET PO SCH ×2 (10:27→21:15)
[2017-06-24] MEDS: ARIPiprazole 5 MG TABLET (FP) PO SCH (10:27)
[2017-06-24] MEDS: LACTATED RINGERS SOLUTION 1,000 ML IV SCH ×2 (10:27→11:17)
[2017-06-24] MEDS: LEVOFLOXACIN 500 MG IVPB 100 ML IVPB SCH (10:27)
--- NOTE | 2017-06-24 19:47 | PN ---
GI Progress Note Subjective: Sitting out in yousif. Appears comfortable and answers questions yes/no He has no pain at this time - Objective Vital Signs: Vital Signs Temperature 99.0 F 06/24/17 18:43 Pulse Rate 67 06/24/17 18:43 Respiratory Rate 18 06/24/17 18:43 Blood Pressure 137/62 06/24/17 18:43 O2 Sat by Pulse Oximetry (%) 97 06/24/17 09:00 Constitutional: Well Nourished, No Distress Neck: Yes: Supple Cardiovascular: Yes: Regular Rate and Rhythm Respiratory: Yes: CTA Bilaterally Gastrointestinal Inspection: Yes: WNL ...Auscultate: Yes: Normoactive Bowel Sounds ...Palpate: Yes: Soft. No: Tenderness Labs: CBC, BMP 06/24/17 07:20 06/24/17 07:20 Assessment/Plan Patient admitted with pancreatitis and renal failure suggesting significant third spacing. Good response to IVF with decreased Cr and BUN. Rec continue IVF LR and decrease to 125. d/c ab rx. Advance diet Spoke at length with one of his psychiatrists, Dr Roach, and we mutually agreed to hold depakote until further notice as there is a well-described correlation with pancreatitis. Abilify restarted and will likely need seroquel restarted soon based on behavior. Family agrees with plan
[2017-06-24] MEDS: FAMOTIDINE 20 MG/50 ML IVPB 50 ML IVPB SCH (20:38)
[2017-06-24] MEDS: ARIPiprazole 10 MG TABLET PO SCH (21:58)
[2017-06-25] MEDS: LACTATED RINGERS SOLUTION 1,000 ML IV SCH ×4 (01:01→18:58)
[2017-06-25] MEDS: METRONIDAZOLE 500 MG PREMIXED 100 ML IVPB SCH ×2 (01:38→09:00)
[2017-06-25 08:10] LABS: BASOPHIL 0.4 % (0-2.0); EOSINOPHIL 3.6 % (0-4.5); MCH 29.8 pg (25.7-33.7); MEAN CELL VOLUME 93.1 fl (80-96); MEAN PLT VOLUME 10.7 fl (7.5-11.1); NEUTROPHILS 59.7 % (42.8-82.8); PLATELET COUNT 118 K/MM3 (134-434); WHITE BLOOD COUNT 10.9 K/mm3 (4.0-10.0)
[2017-06-25 08:40] LABS: ANION GAP 6 (8-16); CALCIUM 8.4 mg/dL (8.5-10.1); CO2 29 mmol/L (21-32); GLUCOSE,RANDOM 113 mg/dL (74-106)
[2017-06-25 08:41] LABS: CREATININE 1.1 mg/dL (0.7-1.3)
[2017-06-25] MEDS ORDERED: PT OWN MED DRAWER 7, Y5N ONE (09:48)
[2017-06-25] MEDS: LEVOFLOXACIN 500 MG IVPB 100 ML IVPB SCH (09:58)
[2017-06-25] MEDS: ARIPiprazole 5 MG TABLET (FP) PO SCH (09:58)
[2017-06-25] MEDS: PROPRANOLOL HCL 20 MG TABLET PO SCH ×2 (09:58→21:50)
--- NOTE | 2017-06-25 11:52 | PN ---
Progress Note, Physician Chief Complaint: tolerated diet no complaints feels well - Current Medication List Current Medications: Active Medications Acetaminophen (Tylenol -) 650 mg PO QID PRN PRN Reason: PAIN Aripiprazole (Abilify) 10 mg PO HS [facility] Last Admin: 06/24/17 21:58 Dose: 10 mg Aripiprazole (Abilify) 5 mg PO DAILY [facility] Last Admin: 06/25/17 09:58 Dose: 5 mg Famotidine/Sodium Chloride (Pepcid 20 Mg Premixed Ivpb -) 50 mls @ 100 mls/hr IVPB DAILY@2100 [facility] Last Admin: 06/24/17 20:38 Dose: 100 mls/hr Lactated Ringer's (Lactated Ringers Solution) 1,000 mls @ 125 mls/hr IV ASDIR [facility] Lorazepam (Ativan Injection -) 2 mg IM Q12H PRN PRN Reason: AGITATION Ondansetron HCl (Zofran Injection) 4 mg IVPB Q8H PRN PRN Reason: NAUSEA Last Admin: 06/24/17 11:01 Dose: 4 mg Propranolol HCl (Inderal -) 20 mg PO BID [facility] Last Admin: 06/25/17 09:58 Dose: 20 mg Quetiapine Fumarate (Seroquel -) 300 mg PO BID [facility] - Objective Vital Signs: Vital Signs Temperature 98.9 F 06/25/17 06:00 Pulse Rate 90 06/25/17 06:00 Respiratory Rate 18 06/25/17 06:00 Blood Pressure 147/83 06/25/17 06:00 O2 Sat by Pulse Oximetry (%) 97 06/24/17 21:00 Constitutional: Yes: No Distress Cardiovascular: Yes: Regular Rate and Rhythm Respiratory: Yes: CTA Bilaterally Gastrointestinal: Yes: Normal Bowel Sounds, Soft. No: Distention, Tenderness Edema: No Labs: CBC, BMP 06/25/17 07:20 06/25/17 07:20 Problem List - Problems (1) ARF (acute renal failure) Code(s): N17.9 - ACUTE KIDNEY FAILURE, UNSPECIFIED (2) Leukocytosis Code(s): D72.829 - ELEVATED WHITE BLOOD CELL COUNT, UNSPECIFIED (3) Mental retardation Code(s): F79 - UNSPECIFIED INTELLECTUAL DISABILITIES (4) Pancreatitis, acute Code(s): K85.90 - ACUTE PANCREATITIS WITHOUT NECROSIS OR INFECTION, UNSP Assessment/Plan PLAN renal function improving on iv fluids on diet on antibiotics Psych eval with regards to pt's meds noted seroquel to be restarted today lipase is in the 1000's, pt assymptomatic will speak with GI
[2017-06-25] MEDS ORDERED: QUEtiapine FUMARATE 300 MG TABLET PO SCH (12:00)
[2017-06-25] MEDS: FAMOTIDINE 20 MG/50 ML IVPB 50 ML IVPB SCH (21:49)
[2017-06-25] MEDS: QUEtiapine FUMARATE 100 MG TABLET (FP) PO SCH (21:50)
[2017-06-25] MEDS: ARIPiprazole 10 MG TABLET PO SCH (23:00)
[2017-06-26 06:43] VITALS: BP 145/82; TEMP 98.1
[2017-06-26] MEDS ORDERED: LACTATED RINGERS SOLUTION 1,000 ML IV SCH (08:43)
[2017-06-26] MEDS: QUEtiapine FUMARATE 100 MG TABLET (FP) PO SCH (09:50)
[2017-06-26] MEDS: ARIPiprazole 5 MG TABLET (FP) PO SCH (09:50)
[2017-06-26] MEDS: PROPRANOLOL HCL 20 MG TABLET PO SCH (09:51)
[2017-06-26 11:43] VITALS: PULSE 71
--- NOTE | 2017-06-26 11:43 | DS ---
Physical Examination Vital Signs: Vital Signs Temperature 98.1 F 06/26/17 10:00 Pulse Rate 71 06/26/17 10:00 Respiratory Rate 18 06/26/17 10:00 Blood Pressure 145/82 06/26/17 10:00 O2 Sat by Pulse Oximetry (%) 97 06/25/17 21:00 Constitutional: Yes: No Distress, Calm Cardiovascular: Yes: Regular Rate and Rhythm Respiratory: Yes: CTA Bilaterally Gastrointestinal: Yes: Normal Bowel Sounds, Soft. No: Distention, Tenderness Edema: No Labs: CBC, BMP 06/25/17 07:20 06/25/17 07:20 Discharge Summary Reason For Visit: ACUTE RENAL FAILURE LEUKOCYTOSIS ACUTE Current Active Problems ARF (acute renal failure) (Acute) Leukocytosis (Acute) Mental retardation (Acute) Pancreatitis, acute (Acute) Thrombocytopenia (Acute) Hospital Course: Admitted for acute pancreatic and renal failure Abd/pelvis CT -- acute pancreatitis Seen by GI and Psychiatry Pancreatitis due to meds-- Depakote Pt responded well with IV Fluids He is tolerating diet Depakote discontinued-- Psychiatrist here had spoken to pt's long-term psychiatrist-- restarted Abilify and Seroquel His Psychiatrist at long-term will need to reassess further. Pt stable for dc home-- he will follow up with DR Jackson-- GI as outpt Condition: Stable - Instructions Referrals: Blayne Jackson MD [Staff Physician] - 2 Weeks Disposition: HOME - Home Medications Comprehensive Discharge Medication List: Ambulatory Orders Acetaminophen [Tylenol] 650 mg PO QID PRN 06/21/17 Aripiprazole [Abilify -] 5 mg PO DAILY 06/21/17 Cholecalciferol (Vitamin D3) [Vitamin D3 -] 1,000 unit PO DAILY 06/21/17 Divalproex [Depakote -] 1,500 mg PO BID 06/21/17 Guaifenesin/D-Methorphan Hb/PE [Tussi-Pres Liquid] 10 ml PO QID 06/21/17 Propranolol HCl 20 mg PO BID 06/21/17 Quetiapine Fumarate [Seroquel -] 700 mg PO HS 06/21/17 Aripiprazole [Abilify -] 10 mg PO HS 06/23/17
== END 2017-06-26 18:49 | disposition home or self-care (01) | DRG 460 ==
LOC: SUPCPDRO 10:15 → JER 10:15 → JERBED 18:56 → JICU 19:34 → J8W 06-22 13:58
PROVIDERS: ADMIT Internal Medicine; ATTEND Internal Medicine
DX: N17.9 Acute kidney failure, unspecified (principal); K85.90 Acute pancreatitis without necrosis or infection, unspecified; F70 Mild intellectual disabilities; F20.9 Schizophrenia, unspecified; G40.89 Other seizures; D69.6 Thrombocytopenia, unspecified
CPT/HCPCS: 36415; 71010-TC; 74176-TC; 76700-TC; 80048; 80053; 80076; 80164; 81003; 81015; 82436; 82570; 82787; 83036; 83605; 83615; 83690; 83735; 84100; 84133; 84300; 84478; 85025; 85027; 87040; 87086; 97116-GP; 97161-GP; 99283-25

== ENCOUNTER 2023-04-01 08:52 | Emergency (ER) | payer OTHER ==
[2023-04-01 09:09] VITALS: RESP 18; BMI 23.1
[2023-04-01] MEDS ORDERED: ACETAMINOPHEN 325 MG TABLET (FP) PO ONE (11:48)
[2023-04-01] MEDS ORDERED: ACETAMINOPHEN 325 MG TABLET (FP) ONE (12:19)
[2023-04-01 13:08] VITALS: TEMP 98.7
[2023-04-01 13:20] VITALS: BP 147/101; PULSE 92
== END 2023-04-01 13:55 | disposition home or self-care (01) ==
LOC: JER 08:52
DX: R51.9 Headache, unspecified (principal); R03.0 Elevated blood-pressure reading, without diagnosis of hypertension
CPT/HCPCS: 70450-TC; 99284-25